=== PATIENT | male | born 1995 ===

== ENCOUNTER 2017-09-11 09:03 | Emergency (ER) | payer SELFPAY ==
[2017-09-11 09:28] VITALS: BP 135/73; PULSE 59; RESP 16; TEMP 98.2; O2SAT 99
[2017-09-11] MEDS ORDERED: Sodium Chloride 0.9% 1,000 ML IV STA (09:36)
--- NOTE | 2017-09-11 09:47 | ED PDOC ---
HPI: General Adult Time Seen by Provider: 09/11/17 09:15 Chief Complaint (Nursing): GI Problem Chief Complaint (Provider): Nausea/vomiting History Per: Patient History/Exam Limitations: no limitations Onset/Duration Of Symptoms: Days (2) Have you had recent travel within the past 21 days to any of the following countries: [place], [place], [place] or [place]?: No Current Symptoms Are (Timing): Still Present Additional Complaint(s): 21 yo male with history of scoliosis presents with 2 days of nausea and vomiting. Pt states he has also been having headaches frequently the last few week but originally thought it was due to common cold. Pt denies fever/chills. Pt denies abdominal pain. PT reports normal BM. Past Medical History Reviewed: Historical Data, Nursing Documentation, Vital Signs Vital Signs: Last Vital Signs Temp 98.2 F 09/11/17 09:23 Pulse 59 L 09/11/17 09:23 Resp 16 09/11/17 09:23 BP 135/73 09/11/17 09:23 Pulse Ox 99 09/11/17 09:47 - Medical History PMH: No Chronic Diseases - Surgical History Surgical History: No Surg Hx - Family History Family History: States: No Known Family Hx - Living Arrangements Living Arrangements: With Family - Social History Current smoker - smoking cessation education provided: No - Home Medications Home Medications: Ambulatory Orders Medication Instructions Recorded Ondansetron ODT [Zofran ODT] 4 mg PO QID #20 odt 09/11/17 - Allergies Allergies/Adverse Reactions: Allergies Allergy/AdvReac Type Severity Reaction Status Date / Time No Known Allergies Allergy Verified 09/11/17 09:23 Review of Systems ROS Statement: Except As Marked, All Systems Reviewed And Found Negative Constitutional: Negative for: Fever, Chills Gastrointestinal: Positive for: Nausea, Vomiting. Negative for: Abdominal Pain , Diarrhea Neurological: Positive for: Headache Physical Exam - Reviewed Nursing Documentation Reviewed: Yes Vital Signs Reviewed: Yes - Physical Exam Appears: Positive for: Well, Non-toxic, No Acute Distress Head Exam: Positive for: ATRAUMATIC, NORMAL INSPECTION, NORMOCEPHALIC Skin: Positive for: Normal Color, Warm, DRY Eye Exam: Positive for: Normal appearance, EOMI, PERRL ENT: Positive for: Normal ENT Inspection Neck: Positive for: Normal, Painless ROM Cardiovascular/Chest: Positive for: Regular Rate, Rhythm Respiratory: Positive for: CNT, Normal Breath Sounds Gastrointestinal/Abdominal: Positive for: Normal Exam, Bowel Sounds, Soft Back: Positive for: Normal Inspection Extremity: Positive for: Normal ROM Neurologic/Psych: Positive for: Alert, Oriented - Laboratory Results Result Diagrams: 09/11/17 10:00 09/11/17 10:00 - ECG O2 Sat by Pulse Oximetry: 99 Medical Decision Making Medical Decision Making: Labs and head CT normal. Pt reports feeling better in ER Disposition - Clinical Impression Clinical Impression: Nausea and vomiting - Patient ED Disposition Is Patient to be Admitted: No - Disposition Referrals: FAMILY PROVIDER,NO [Primary Care Provider] - Disposition: Routine/Home Disposition Time: 11:58 Condition: GOOD Prescriptions: Ondansetron ODT [Zofran ODT] 4 mg PO QID #20 odt Instructions: Nausea and Vomiting, Adult (DC) Forms: [employer] (Arabic)
[2017-09-11 10:32] LABS: BASO % 0.7 % (0.0-2.0); EOS # 0.1 K/uL (0.0-0.7); EOS % 1.6 % (0.0-4.0); LYMPH # 1.8 K/uL (1.0-4.3); LYMPH % 31.3 % (20.0-40.0); MEAN CELL VOLUME 91.4 fl (80.0-94.0); MEAN CORPUSCULAR HEMOGLOBIN 31.3 pg (27.0-31.0); MEAN CORPUSCULAR HGB CONC 34.3 g/dL (33.0-37.0); MEAN PLATELET VOLUME 9.5 fl (7.2-11.7); MONO # 0.5 K/uL (0.0-0.8); MONO % 9.1 % (0.0-10.0); NEUT # 3.4 K/uL (1.8-7.0); NEUT % 57.3 % (50.0-75.0); NRBC % 0.1 % (0.0-0.0); RBC 5.1 Mil/uL (4.40-5.90); RED CELL DISTRIBUTION WIDTH 13.5 % (11.5-14.5); WHITE BLOOD COUNT 5.9 K/uL (4.8-10.8)
[2017-09-11] MEDS: Sodium Chloride 0.9% 250 ML IV SCH ×3 (10:32→11:56)
[2017-09-11 10:39] LABS: ALB/GLOB RATIO 1.5 (1.0-2.1); ALBUMIN 4.6 g/dL (3.5-5.0); ALT/SGPT 45 U/L (21-72); AST/SGOT 21 U/L (17-59); BLOOD UREA NITROGEN 12 mg/dl (9-20); CALCIUM 9.8 mg/dL (8.4-10.2); GFR AFRICAN-AMERICAN > 60; GFR NON-AFRICAN AMERICAN > 60; LIPASE 67 U/L (23-300)
--- NOTE | 2017-09-11 11:45 | CT ---
PROCEDURE: CT HEAD WITHOUT CONTRAST. HISTORY: headaches, nausea, vomiting COMPARISON: None available. TECHNIQUE: Axial computed tomography images were obtained through the head/brain without intravenous contrast. Radiation dose: Total exam DLP = mGy-cm. This CT exam was performed using one or more of the following dose reduction techniques: Automated exposure control, adjustment of the mA and/or kV according to patient size, and/or use of iterative reconstruction technique. FINDINGS: HEMORRHAGE: No intracranial hemorrhage. BRAIN: No mass effect or edema. No atrophy or chronic microvascular ischemic changes. VENTRICLES: Unremarkable. No hydrocephalus. CALVARIUM: Unremarkable. PARANASAL SINUSES: Unremarkable as visualized. No significant inflammatory changes. MASTOID AIR CELLS: Unremarkable as visualized. No inflammatory changes. OTHER FINDINGS: None. IMPRESSION: Normal CT of the Head.
== END 2017-09-11 12:28 | disposition home or self-care (01) ==
LOC: H.ER 09:03
DX: R11.2 Nausea with vomiting, unspecified (principal); M41.9 Scoliosis, unspecified
CPT/HCPCS: 70450; 80053; 83690; 85025; 99283; J2405